=== PATIENT | male | born 1955 | race Caucasian/White ===

== ENCOUNTER 2019-09-16 12:26 | Inpatient (IN) | payer OTHER, SELFPAY ==
[~2019-09-16] VITALS: Ht 170.2 cm; Wt 103.6 kg
[2019-09-16 12:40] VITALS: BP_SYST 104
[2019-09-16 13:53] LABS: BASOPHILS % (AUTO) 0.2 % (0.0-2.0); HEMATOCRIT 39.2 % (36-54); HEMOGLOBIN 12.7 g/dL (14.0-18.0); LYMPHOCYTES # (AUTO) 0.8 K/uL (1.0-5.5); LYMPHOCYTES % (AUTO) 21.9 % (20.5-51.5); MEAN CORPUSCULAR HEMOGLOBIN 27 pg (27-31); MEAN CORPUSCULAR HGB CONC 33 % (32-36); MEAN CORPUSCULAR VOLUME 84 fL (79.0-98.0); MONOCYTES # (AUTO) 0.4 K/uL (0.0-1.0); MONOCYTES % (AUTO) 9.5 % (1.7-9.3); NEUTROPHILS # (AUTO) 2.6 K/uL (1.8-7.7); NEUTROPHILS % (AUTO) 68.4 % (40.0-70.0); PLATELET COUNT (AUTO) 108 K/uL (130-430); RED BLOOD CELL COUNT(AUTO) 4.65 MIL/uL (4.2-6.2); RED CELL DISTRIBUTION WIDTH 15.2 % (9.0-15.0); WHITE BLOOD COUNT (AUTO) 3.7 K/uL (4.8-10.8)
[2019-09-16 14:01] LABS: CALCIUM 8.1 mg/dL (8.4-11.0); CREATININE 1.49 mg/dL (0.55-1.30); POTASSIUM 3.7 mmol/L (3.5-5.1)
[2019-09-16 14:05] LABS: PROTHROMBIN TIME 9.9 SECS (9.5-12.5)
[2019-09-16 14:06] LABS: ALBUMIN 3.2 g/dL (3.4-4.8); C-REACTIVE PROTEIN QUANT 2.9 mg/dL (0-0.5); TOTAL BILIRUBIN 0.4 mg/dL (0.0-1.0)
[2019-09-16 16:53] LABS: BILIRUBIN,URINE NEGATIVE (NEGATIVE); BLOOD, URINE 2+ (NEGATIVE); COLOR,URINE YELLOW (YELLOW); GLUCOSE,URINE NEGATIVE (NEGATIVE); KETONES,URINE NEGATIVE (NEGATIVE); LEUKOCYTE ESTERASE ,URINE NEGATIVE (NEGATIVE); NITRITE, URINE NEGATIVE (NEGATIVE); PROTEIN URINE 2+ (NEGATIVE); UROBILINOGEN,URINE 0.2 (0.2-1.0)
[2019-09-16 16:55] LABS: CLARITY/URINE SLIGHTLY HAZY (CLEAR)
[2019-09-16 17:05] LABS: BACTERIA,URINE FEW /HPF (None Seen); WBC,URINE 0-3 /HPF (0-3)
[2019-09-16] MEDS ORDERED: ALBUTEROL MDI INHALATION 8 GM INH INH PRN (20:15)
[2019-09-16] MEDS: DECADRON 4 MG TABLET PO SCH (20:47)
[2019-09-16] MEDS: cefTRIAXone 1 GM IVPB PREMIX 50 ML IV SCH (20:47)
[2019-09-16] MEDS: ENOXAPARIN SODIUM 40 MG/0.4 ML SYRINGE SUBCUT SCH (20:51)
[2019-09-16] MEDS ORDERED: ENAL10TA PO (21:38)
[2019-09-16] MEDS ORDERED: METO25TA6 PO (21:38)
[2019-09-16] MEDS ORDERED: TAMS0.4C96 PO (21:39)
[2019-09-16] MEDS ORDERED: ASPI-1155 PO (21:39)
[2019-09-17 01:14] VITALS: BP_SYST 132
[2019-09-17 08:20] VITALS: BP_SYST 118
[2019-09-17] MEDS: ENOXAPARIN SODIUM 40 MG/0.4 ML SYRINGE SUBCUT SCH (09:35)
[2019-09-17 17:15] VITALS: BP_SYST 137
[2019-09-17] MEDS: ASCORBIC ACID 500 MG TABLET PO SCH (19:20)
[2019-09-17] MEDS: CHOLECALCIFEROL (VITAMIN D3) 2,000 UNIT TABLET PO SCH (19:20)
[2019-09-17 20:00] VITALS: BP_SYST 125
[2019-09-17] MEDS: cefTRIAXone 1 GM IVPB PREMIX 50 ML IV SCH (20:15)
[2019-09-17] MEDS: DECADRON 4 MG TABLET PO SCH (20:15)
[2019-09-17] MEDS ORDERED: TRAM50TA2 PO (20:56)
[2019-09-18] VITALS: BP_SYST 128
[2019-09-18 04:00] VITALS: BP_SYST 130
[2019-09-18] MEDS: CHOLECALCIFEROL (VITAMIN D3) 2,000 UNIT TABLET PO SCH (08:42)
[2019-09-18] MEDS: ASCORBIC ACID 500 MG TABLET PO SCH (08:42)
[2019-09-18 08:44] VITALS: BP_SYST 116
[2019-09-18] MEDS: ENOXAPARIN SODIUM 40 MG/0.4 ML SYRINGE SUBCUT SCH (08:44)
[2019-09-18] MEDS ORDERED: VITD2000 PO (10:38)
[2019-09-18] MEDS ORDERED: Zinc Sulfate PO (10:38)
[2019-09-18] MEDS ORDERED: ALBMDI INH (10:38)
[2019-09-18] MEDS ORDERED: DEC4 PO (10:38)
[2019-09-18] MEDS ORDERED: ASCO500T20 PO (10:38)
[2019-09-18] MEDS ORDERED: DOXY100C PO (10:41)
[2019-09-18 10:56] VITALS: BP_SYST 116
[2019-09-18 10:58] LABS: CALCIUM 8.7 mg/dL (8.4-11.0); CREATININE 1.23 mg/dL (0.55-1.30); POTASSIUM 4.7 mmol/L (3.5-5.1); TOTAL BILIRUBIN 0.4 mg/dL (0.0-1.0)
== END 2019-09-18 11:52 | disposition home or self-care (01) | DRG 177 ==
LOC: SED 12:26 → STU 16:14
PROVIDERS: ADMIT Internal Medicine Hospice and Palliative Medicine; ATTEND Internal Medicine Hospice and Palliative Medicine
DX: U07.1 COVID-19 (principal); J12.89 Other viral pneumonia; E66.9 Obesity, unspecified; I12.9 Hypertensive chronic kidney disease with stage 1 through stage 4 chronic kidney disease, or unspecified chronic kidney disease; N18.9 Chronic kidney disease, unspecified; N40.0 Benign prostatic hyperplasia without lower urinary tract symptoms; R09.02 Hypoxemia; G89.29 Other chronic pain; Z68.35 Body mass index [BMI] 35.0-35.9, adult
CPT/HCPCS: 36415; 36600; 71045; 80053; 81000-TC; 82550-TC; 82728; 82803-TC; 83605; 83615-TC; 83880; 84484; 85025; 85384-TC; 85610-TC; 85730-TC; 86140; 86886; 86900; 86901; 87040-TC; 87086; 93005; 99291; G0378; J0696; J1650; J7050; J8540